=== PATIENT | male | born 1985 | race Caucasian/White ===

== ENCOUNTER 2016-08-23 17:23 | Emergency (ER) | payer MEDICAID, OTHER ==
[2016-08-23 17:35] VITALS: BP 135/74; PULSE 74; TEMP 98.1; O2SAT 95
--- NOTE | 2016-08-23 18:29 | UCPHY ---
H & P Time Seen by Provider: 08/23/16 18:01 Patient Type: Established HPI/ROS: Patient reports a 2 week history of coughing that is a dry hacky cough. He explains the family vacation in [place] and he contracted this illness but the time they return to [place]. He has associated mild dyspnea on exertion wheezing which is not common for him. He also has a mild occipital headache 2/ 10 intensity that improves with [id number] analgesics. Finally, he reports mild myalgias that persist. He notes no clear exacerbating or alleviating factors otherwise. ROS: No high fevers or chills. No significant fatigue. HEENT: No facial pain. Minimal nasal congestion. No ear pain. No throat pain. No dysphonia. No stridor. Pulmonary: No pleuritic pain. No hemoptysis. No respiratory distress. Cardiovascular: No lightheadedness. No leg swelling or calf pain. GI: No nausea vomiting. 7 point ROS is otherwise negative. 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 Smoking Status: Never smoked Physical Exam: Physical Exam Vital signs are normal. General: No acute distress HEENT: Nose: Clear discharge bilaterally. No sinus tenderness to percussion. Ears: External canals and tympanic membranes are clear with no erythema or abnormal findings bilaterally. Oropharynx: No erythema or exudates. No dysphonia. No drooling or stridor. Eyes: Pupils equal and react to light. Extraocular motions are intact. Lungs: Faint expiratory wheeze bilaterally. No rales or rhonchi. Cardiac: Regular rate and rhythm with no murmur gallop or rub Skin: No rash or pallor. Neuro: Alert with no focal deficits noted. Initial differential diagnosis: Viral bronchitis versus bacterial bronchitis, URI with RAD, doubt pneumonia Constitutional: Initial Vital Signs Temperature (C) 36.7 C 08/23/16 17:34 Heart Rate 74 08/23/16 17:34 Blood Pressure 135/74 H 08/23/16 17:34 O2 Sat (%) 95 08/23/16 17:34 O2 Delivery Mode Room Air Allergies/Adverse Reactions: erythromycin base [Erythromycin Base] Allergy (Verified 08/25/13 19:43) Penicillins Allergy (Verified 08/25/13 19:43) Home Medications: Medication Instructions Recorded Albuterol Hfa Anes Only [Proair 2 puffs IH Q4 PRN #1 mdi 08/23/16 Hfa Icu (*)] Azithromycin [Zithromax] 250 mg PO DAILY #6 tab 08/23/16 MDM/Departure - [facility] ED Course/Re-evaluation: Given 2 week history of coughing with 2 other family members with similar symptoms, will test for pertussis. I counseled patient regarding this. Will cover him with macrolide antibiotic. Clinical evidence of sepsis or other concerning findings. - Depart Disposition: Home, Routine, Self-Care Clinical Impression: Acute bronchitis Qualifiers: Bronchitis organism: unspecified organism Qualified Code(s): J20.9 - Acute bronchitis, unspecified Condition: Good Instructions: Acute Bronchitis (ED) Additional Instructions: Diagnosis: Acute bronchitis Plan: Humidifier Albuterol inhaler with spacer for cough, wheeze or shortness of breath Zithromax antibiotic Return for any significant worsening despite the treatment plan Prescriptions: Albuterol Hfa Anes Only [Proair Hfa Icu (*)] 2 puffs IH Q4 PRN #1 mdi PRN Reason: Wheezing Azithromycin [Zithromax] 250 mg PO DAILY #6 tab Referrals: NONE *PRIMARY CARE P,. [Primary Care Provider] - As per Instructions - PQRS PQRS Measurement: NA
[2016-08-25 14:15] LABS: B.PARAPERTUSSIS PCR Negative; B.PERTUSSIS PCR Negative
== END 2016-08-23 18:47 | disposition home or self-care (01) ==
LOC: CED 17:23
DX: J20.9 Acute bronchitis, unspecified (principal)
CPT/HCPCS: 87798-90; 99214-PO; G0463-PO